=== PATIENT | female | born 1950 | race Caucasian/White ===

== ENCOUNTER → 2025-03-15 | Outpatient (CLI) | payer SELFPAY, OTHER ==
--- NOTE | 2025-03-15 08:40 | ECHOD_ITS ---
Reason For Study ECHO/Echo Complete
== END | disposition home or self-care (01) ==
LOC: CVS 08:37
PROVIDERS: PCP Family Medicine; Referring Provider Internal Medicine Cardiovascular Disease; Visit Provider Internal Medicine Cardiovascular Disease
DX: R00.2 Palpitations (principal); R42 Dizziness and giddiness; R93.0 Abnormal findings on diagnostic imaging of skull and head, not elsewhere classified; I10 Essential (primary) hypertension
CPT/HCPCS: 93306